=== PATIENT | male | born 1935 | race Caucasian/White ===

== ENCOUNTER 2016-11-06 16:21 | Emergency (ER) | payer OTHER ==
[~2016-11-06] VITALS: Ht 182.9 cm; Wt 79.0 kg
[~2016-11-06 16:21] MED LIST: HYDR-3533 PO; METF500 PO
[2016-11-06 16:24] VITALS: BP 134/63; PULSE 68; RESP 16; TEMP 97.6; O2SAT 97
[2016-11-06] MEDS ORDERED: VERA120T7 PO (16:40)
[2016-11-06] MEDS ORDERED: FINA5TAB2 PO (16:40)
[2016-11-06] MEDS ORDERED: METF500T PO (16:40)
[2016-11-06] MEDS ORDERED: DIGO0.25 PO (16:40)
[2016-11-06] MEDS ORDERED: SIMV20TA PO (16:40)
[2016-11-06] MEDS ORDERED: GABA300C5 PO (16:40)
[2016-11-06] MEDS ORDERED: OMEP20TA PO (16:40)
[2016-11-06] MEDS ORDERED: LOSA25TA PO (16:40)
--- NOTE | 2016-11-06 16:56 | PD ---
HPI . Right elbow injury Chief Complaint: Injury Time Seen by Provider: 16:51 Travel History International Travel<30 days: No Contact w/Intl Traveler<30days: No Traveled to known affect area: No History of Present Illness HPI Patient presents with the chief complaint of a right elbow injury which occurred about 4 hours prior to presentation. He was moving a piece of furniture when he felt something pop in his right elbow. He states that it did not hurt initially. However, pain later started and was radiating down his arm. He states he gave his dog a bath the pain started radiating up his arm. He then decided that he should probably come and have it checked out. PFSH Past Medical History Cardiovascular Problems: Yes (takes a medication for tachycardia) High Cholesterol: Yes Diabetes: Yes Patient Takes Glucophage: Yes Diminished Hearing: No GERD: Yes Hypertension: Yes Influenza Vaccination: No ?: Not Past Surgical History Other Surgery: Yes (cervical and lumbar fusions, bilateral knee arthroscopy) Social History Alcohol Use: No Tobacco Use: Yes Substance Use: No Allergies-Medications (Allergen,Severity, Reaction): Coded Allergies: Tetanus Toxoid (Verified Allergy, Intermediate, swelling, 11/06/16) Cortisone (Verified Adverse Reaction, Intermediate, abscesses, 11/06/16) Reported Meds & Prescriptions Reported Meds & Active Scripts Active Reported Gabapentin 300 Mg Cap 1,000 Mg PO DAILY Losartan (Losartan Potassium) 25 Mg Tab 25 Mg PO DAILY Finasteride 5 Mg Tab 5 Mg PO DAILY Do not crush. Simvastatin 20 Mg Tab 20 Mg PO DAILY Digoxin 0.25 Mg Tab 0.25 Mg PO DAILY Verapamil SR (Verapamil HCl) 120 Mg Tab 120 Mg PO BID Omeprazole 20 Mg Tab 20 Mg PO DAILY Metformin (Metformin HCl) 500 Mg Tab 500 Mg PO BIDPC With meals Review of Systems Except as stated in HPI: all other systems reviewed are Neg Musculoskeletal: Positive: Myalgias, Arthralgias, No: Limited ROM Skin: Positive Other (no associated break in the skin.) Physical Exam Narrative GENERAL: This is an elderly man who appears somewhat unsteady on his feet. He ambulates in. SKIN: Warm and dry. The skin of the right elbow is intact. HEAD: Atraumatic. Normocephalic. EYES: Pupils equal and round. ENT: No nasal bleeding or discharge. Mucous membranes pink and moist. NECK: Supple. CARDIOVASCULAR: Regular rate. Intact distal pulses. RESPIRATORY: No accessory muscle use. MUSCULOSKELETAL: No obvious deformities. No edema. He is tender in the right elbow over the radial head and lateral epicondyle. Passive pronation and supination causes pain. He is able to flex and extend the elbow without pain. He is able to fully extend the elbow. NEUROLOGICAL: Awake and alert. No obvious cranial nerve deficits. Motor grossly within normal limits. Normal speech. PSYCHIATRIC: Appropriate mood and affect; insight and judgment normal. Data Data Last Documented VS Vital Signs Date Time Temp Pulse Resp B/P Pulse Ox O2 Delivery O2 Flow Rate FiO2 11/06/16 16:24 97.6 68 16 134/63 97 Orders Elbow, Complete (4 Vws) (11/06/16 16:51) Acetaminophen (Tylenol) (11/06/16 17:00) Ice/Cold Pack (11/06/16 16:51) Splint Or Brace Apply/Monitor (11/06/16 17:12) [facility] Medical Decision Making Medical Screen Exam Complete: Yes Emergency Medical Condition: Yes Differential Diagnosis Differential diagnosis of extremity trauma includes but is not limited to fracture, sprain or strain, dislocation, contusion Narrative Course Patient presents for evaluation and treatment of her right elbow injury. Last Impressions Elbow X-Ray 11/06/16 1651 Signed Impressions: Service Date/Time: Sunday, November 06, 2016 16:56 - CONCLUSION: Normal examination for a patient of this age. Jaciel Thompson MD The x-ray was independently viewed by me. Diagnosis Primary Impression: Strain of right elbow Qualified Code: S56.911A - Strain of right elbow, initial encounter Patient Instructions: Elbow Sprain (ED), General Instructions Additional Instructions: Sling as needed for comfort. Ice and Tylenol as needed for pain. Disposition: 01 DISCHARGE HOME Condition: Stable Tamia Christensen MD Nov 06, 2016 16:56
[2016-11-06] MEDS ORDERED: ACETAMINOPHEN 325 MG TAB PO ONE (17:00)
--- NOTE | 2016-11-06 17:29 | RADHPO ---
EXAM DATE/TIME: 11/06/2016 16:56 [facility] COMPARISON: No previous studies available for comparison. INDICATIONS : Right elbow pain. Patient states he was moving a dresser and felt a pop in his elbow today. MEDICAL HISTORY : None. SURGICAL HISTORY : None. ENCOUNTER: Initial ACUITY: 1 day PAIN SCORE: 10/10 LOCATION: Right elbow. FINDINGS: Multiple view examination of the right elbow demonstrates no soft tissue swelling, joint effusion, or fracture. The osseous structures are in normal alignment. Bony mineralization is normal. CONCLUSION: Normal examination for a patient of this age. Jaciel Thompson MD on November 06, 2016 at 17:27 Board Certified Radiologist. This report was verified electronically.
== END 2016-11-06 17:55 | disposition home or self-care (01) ==
LOC: PHEFT 16:21
DX: S56.911A Strain of unspecified muscles, fascia and tendons at forearm level, right arm, initial encounter (principal); I10 Essential (primary) hypertension; E78.00 Pure hypercholesterolemia, unspecified; E11.9 Type 2 diabetes mellitus without complications; Z72.0 Tobacco use; Z79.84 Long term (current) use of oral hypoglycemic drugs; Z86.79 Personal history of other diseases of the circulatory system; Z87.19 Personal history of other diseases of the digestive system; X50.0XXA Overexertion from strenuous movement or load, initial encounter; Y93.F1 Activity, caregiving, bathing
CPT/HCPCS: 73080; 99283

== ENCOUNTER 2017-09-29 18:56 | Emergency (ER) | payer OTHER ==
[~2017-09-29] VITALS: Ht 182.9 cm; Wt 77.0 kg
[~2017-09-29 18:56] MED LIST changes: +DIGO0.25 PO; +FINA5TAB2 PO; +GABA300C5 PO; -HYDR-3533 PO; +LOSA25TA PO; -METF500 PO; +METF500T PO; +OMEP20TA93 PO; +SIMV20TA PO; +VERA120T7 PO
[2017-09-29 19:06] VITALS: BP 140/68; PULSE 92; RESP 12; TEMP 97.9; O2SAT 99
[2017-09-29 19:20] VITALS: BP 140/68; PULSE 92; RESP 16; TEMP 97.9; O2SAT 99
--- NOTE | 2017-09-29 19:44 | PD ---
HPI Chief Complaint: Fall Time Seen by Provider: 19:32 Travel History International Travel<30 days: No Contact w/Intl Traveler<30days: No Traveled to known affect area: No History of Present Illness HPI Patient is an 82 year old male presents to the ER for evaluation of left elbow swelling after fall caused by tripping over his dog today. patient states landed first on his knees then on his left elbow. Denies head/neck/back/chest/ abdomen injury. Patient denies loss of consciousness. Has been many years since last tetanus but he is allergic. States only minimal pain, left elbow, context and associated s/s as above. PFSH Past Medical History Cardiovascular Problems: Yes (takes a medication for tachycardia) High Cholesterol: Yes Diabetes: Yes Patient Takes Glucophage: Yes Diminished Hearing: No GERD: Yes Hypertension: Yes Immunizations Current: Yes Tetanus Vaccination: > 5 Years Influenza Vaccination: No Past Surgical History Other Surgery: Yes (cervical and lumbar fusions, bilateral knee arthroscopy) Social History Alcohol Use: No Tobacco Use: Yes Substance Use: No Allergies-Medications (Allergen,Severity, Reaction): Coded Allergies: tetanus toxoid, adsorbed (Unverified Allergy, Intermediate, swelling, ) cortisone (Unverified Adverse Reaction, Intermediate, abscesses, 09/29/17) Reported Meds & Prescriptions Reported Meds & Active Scripts Active Reported Gabapentin 300 Mg Cap 1,000 Mg PO DAILY Losartan (Losartan Potassium) 25 Mg Tab 25 Mg PO DAILY Finasteride 5 Mg Tab 5 Mg PO DAILY Do not crush. Simvastatin 20 Mg Tab 20 Mg PO DAILY Digoxin 0.25 Mg Tab 0.25 Mg PO DAILY Verapamil SR (Verapamil HCl) 120 Mg Tab 120 Mg PO BID Omeprazole 20 Mg Tab 20 Mg PO DAILY Metformin (Metformin HCl) 500 Mg Tab 500 Mg PO BIDPC With meals Review of Systems Except as stated in HPI: all other systems reviewed are Neg Physical Exam Narrative GENERAL: WD/WN in nad. SKIN: Warm and dry. small skin avulsion over lateral aspect of olecranon on left. HEAD: Normocephalic/atraumatic EYES: No scleral icterus. No injection or drainage. NECK: Supple, trachea midline. No JVD or lymphadenopathy. CARDIOVASCULAR: Regular rate and rhythm without murmurs, gallops, or rubs. RESPIRATORY: Breath sounds equal bilaterally. No accessory muscle use. GASTROINTESTINAL: Abdomen soft, non-tender, nondistended. MUSCULOSKELETAL: No cyanosis, there is a fair sized hematoma over the left forearm over the proximal half of the radius. Probably measures 10x5cm. Soft. There is overlying bruising and 2cm skin avulsion over the proximal portion of this. Bony elbow is nontender. Full NT ROM of bilateral upper extremities at all joints. Small abrasions to bilateral lower extremities over the patallae. No bony tenderness. Minimal anterior swelling but no joint effusion. Full NT ROM of all joints in bilateral lower extremities. No midline c/t/l/s spine tenderness, pelvis stable. BACK: Nontender without obvious deformity. No CVA tenderness. Data Data Last Documented VS Vital Signs Date Time Temp Pulse Resp B/P (MAP) Pulse Ox O2 Delivery O2 Flow Rate FiO2 09/29/17 21:32 85 18 144/75 (98) 98 Room Air 09/29/17 19:20 97.9 Orders Orders Elbow, Complete (4 Vws) (09/29/17 ) Knee, Complete (4vws) (09/29/17 ) Knee, Complete (4vws) (09/29/17 ) Shalom Bandage (09/29/17 21:07) Ed Discharge Order (09/29/17 21:07) MDM Medical Decision Making Medical Screen Exam Complete: Yes Emergency Medical Condition: Yes Differential Diagnosis Hematoma, fracture, contusion, avulsion. Narrative Course Roomed in the ER. offered pain medication and he declined. xrays negative for bony injury. No indication for repair of avulsion. Compartments are soft and no indication for compartment syndrome. Discussed symptomatic management and return to ED criteria. Diagnosis Primary Impression: Contusion of left forearm Qualified Codes: S50.12XA - Contusion of left forearm, initial encounter Additional Impression: Traumatic hematoma of left forearm Patient Instructions: Fall Prevention (DC), General Instructions, Hematoma (ED) , RICE Therapy (GEN) Disposition: 01 DISCHARGE HOME Condition: Stable Zach Jimenez MD Sep 29, 2017 19:44
--- NOTE | 2017-09-29 20:39 | RADRPT ---
EXAM DATE/TIME: 09/29/2017 19:51 [facility] COMPARISON: No previous studies available for comparison. INDICATIONS : Patient fell twice today. Pain on anterior surface of both knees and lateral side of elbow. MEDICAL HISTORY : None. SURGICAL HISTORY : None. ENCOUNTER: Initial ACUITY: 1 day PAIN SCORE: 4/10 LOCATION: Left Elbow FINDINGS: Decreased bone density. No definite fracture or dislocation. Well corticated ossicles posterior to th e olecranon are noted. CONCLUSION: No acute disease. Clark Patterson MD on September 29, 2017 at 20:36 Board Certified Radiologist. This report was verified electronically.
--- NOTE | 2017-09-29 20:39 | RADRPT ---
EXAM DATE/TIME: 09/29/2017 19:51 [facility] COMPARISON: No previous studies available for comparison. INDICATIONS : Patient fell twice today. Pain on anterior surface of both knees and lateral side of elbow. MEDICAL HISTORY : None. SURGICAL HISTORY : None. ENCOUNTER: Initial ACUITY: 1 day PAIN SCORE: 1/10 LOCATION: Right Knee FINDINGS: The bone density is decreased. [id number] osteoarthritis of the knee is noted. No fracture. No effusion. CONCLUSION: No acute disease. Clark Patterson MD on September 29, 2017 at 20:37 Board Certified Radiologist. This report was verified electronically.
--- NOTE | 2017-09-29 20:40 | RADRPT ---
EXAM DATE/TIME: 09/29/2017 19:51 [facility] COMPARISON: KNEE LEFT COMPLETE (4VWS), February 12, 2015, 6:34. INDICATIONS : Patient fell twice today. Pain on anterior surface of both knees and lateral side of elbow. MEDICAL HISTORY : None. SURGICAL HISTORY : None. ENCOUNTER: Initial ACUITY: 1 day PAIN SCORE: 2/10 LOCATION: Left Knee FINDINGS: Mild to moderate osteoarthritis is noted and unchanged. Bone density is decreased. No effusion, fract ure or dislocation. Mild infrapatellar soft tissue swelling. CONCLUSION: Mild soft tissue swelling. Osteoarthritis. Clark Patterson MD on September 29, 2017 at 20:37 Board Certified Radiologist. This report was verified electronically.
[2017-09-29 21:32] VITALS: BP 144/75; PULSE 85; RESP 18; O2SAT 98
== END 2017-09-29 21:34 | disposition home or self-care (01) ==
LOC: PHED 18:56
DX: S50.12XA Contusion of left forearm, initial encounter (principal); S80.812A Abrasion, left lower leg, initial encounter; S80.811A Abrasion, right lower leg, initial encounter; M17.12 Unilateral primary osteoarthritis, left knee; E11.9 Type 2 diabetes mellitus without complications; K21.9 Gastro-esophageal reflux disease without esophagitis; I10 Essential (primary) hypertension; W01.0XXA Fall on same level from slipping, tripping and stumbling without subsequent striking against object, initial encounter; Z72.0 Tobacco use
CPT/HCPCS: 73080; 73564; 99284

== ENCOUNTER 2017-11-16 10:07 | Observation (INO) | payer OTHER ==
[~2017-11-16] VITALS: Ht 182.9 cm; Wt 71.0 kg
[2017-11-16] MEDS ORDERED: BUPIVACAINE/EPINEPHRINE 0.25% 50 ML VIAL ONE (10:58)
[2017-11-16] MEDS ORDERED: THROMBIN (TOPICAL) 5,000 UNIT VIAL ONE (10:58)
[2017-11-16] MEDS ORDERED: GELATIN 12 MM/7 MM FOAM ONE (10:58)
[2017-11-16] MEDS ORDERED: CHLORHEXIDINE GLUCONATE 2 % 1 PACK (2 CLOTHS) TOPICAL PRN (11:00)
[2017-11-16] MEDS ORDERED: ceFAZolin 1,000 MG/NS 100 ML IV SCH ×2 (11:00)
[2017-11-16] MEDS ORDERED: POVIDONE IODINE 5% (ANTISEPSIS KIT) 4 APPLICATIONS EACH NARE PRN (11:00)
[2017-11-16] MEDS ORDERED: SODIUM CHLORID 0.9% 500 ML IV PRN (11:00)
[2017-11-16] MEDS ORDERED: ACETAMINOPHEN 1000 MG/100 ML 100 ML IV SCH (11:00)
[2017-11-16] MEDS ORDERED: VANCOMYCIN 1 GM/200 ML PREMIX ON-CALL IV SCH (11:00)
[2017-11-16] MEDS ORDERED: LACTATED RINGER'S 1000 ML IV PRN (11:00)
[2017-11-16] MEDS ORDERED: METOPROLOL TARTRATE 25 MG TAB PO PRN (11:00)
[2017-11-16 11:11] LABS: AUTOMATED NEUTROPHIL # 4.6 TH/MM3 (1.8-7.7); BASOPHIL % 0.6 % (0.0-2.0); EOSINOPHIL # 0.1 TH/MM3 (0-0.4); EOSINOPHIL % 1.9 % (0.0-4.0); HEMATOCRIT 38.3 % (39.0-51.0); HEMOGLOBIN 13.2 GM/DL (13.0-17.0); LYMPH % 16.4 % (9.0-44.0); LYMPHOCYTE # 1.1 TH/MM3 (1.0-4.8); MEAN CORPUSCULAR HEMOGLOBIN 32.7 PG (27.0-34.0); MEAN CORPUSCULAR HGB CONC 34.5 % (32.0-36.0); MEAN PLATELET VOLUME 8.3 FL (7.0-11.0); MONO % 11.3 % (0.0-8.0); MONOCYTE # 0.7 TH/MM3 (0-0.9); NEUT % 69.8 % (16.0-70.0); PLATELET COUNT 256 TH/MM3 (150-450); RED BLOOD COUNT 4.03 MIL/MM3 (4.50-5.90); RED CELL DISTRIBUTION WIDTH 13.6 % (11.6-17.2); WHITE BLOOD COUNT 6.6 TH/MM3 (4.0-11.0)
[2017-11-16] MEDS ORDERED: VERA120T3 PO (11:12)
[2017-11-16] MEDS ORDERED: ATOR20TA15 PO (11:12)
[2017-11-16] MEDS ORDERED: SODIUM CHLOR 0.9% 250 ML INJ 250 ML ONE (11:15)
[2017-11-16] MEDS ORDERED: VANCOMYCIN HCL 1000 MG VIAL ONE (11:15)
[2017-11-16 11:41] LABS: BICARBONATE 25.2 MEQ/L (21.0-32.0); CALCIUM 8.9 MG/DL (8.5-10.1); CREATININE 0.88 MG/DL (0.60-1.30)
[2017-11-16] MEDS ORDERED: LIDOCAINE HCL 1% PF 5 ML SYRINGE OTHER ONE (12:00)
[2017-11-16] MEDS ORDERED: ePHEDrine/NS 25 MG/5 ML SYRINGE IV ONE (12:00)
[2017-11-16] MEDS ORDERED: ONDANSETRON HCL 4 MG/2 ML VIAL IV ONE (12:00)
[2017-11-16] MEDS ORDERED: PHENYLEPH/NS 1000 MCG/10 ML SYR IV ONE (12:00)
[2017-11-16] MEDS ORDERED: SUCCINYLCHOLINE CHLORIDE 100 MG/5 ML SYRINGE IV PUSH ONE (12:00)
[2017-11-16] MEDS ORDERED: PROPOFOL 200 MG/20 ML AMP IV ONE (12:00)
--- NOTE | 2017-11-16 13:35 | EKG ---
Date Performed: 11/16/2017 Time Performed: 11:00:51 PTAGE: 82 years EKG: ECTOPIC ATRIAL BRADYCARDIA MODERATE T-WAVE ABNORMALITY, CONSIDER LATERAL ISCHEMIA ABNORMAL ECG NO PREVIOUS TRACING DOCTOR: Pablo Ardon Interpretating Date/Time 11/16/2017 13:33:22
--- NOTE | 2017-11-16 13:55 | HHI.PR ---
cc: Bonifacio Gannon MD Immediate Post Op Note Procedure Date: Nov 16, 2017 Pre Op Diagnosis: Symptomatic multinodular goiter Post Op Diagnosis: Same Surgeon: Bonifacio Gannon Sorter Packer(s): Yuri Albright MD Procedure: Total thyroidectomy with autotransplantation RLL parathyroid gland Findings: Extremely large goiter Complications: None Specimen(s) removed: thyroid gland to pathology Estimated blood loss: 400 ml Anesthesia: General Drains: None IVF (1700 ml) Patient to: PACU Patient Condition: Good Date/Time of Procedure: SEE SURGICAL CARE RECORD Bonifacio Gannon MD Nov 16, 2017 13:55
[2017-11-16] MEDS ORDERED: MAGNESIUM HYDROXIDE SUSP 30 ML CUP PO PRN (14:00)
[2017-11-16] MEDS ORDERED: Post-op Orders (for Pharmacy) XX ONE (14:00)
[2017-11-16] MEDS ORDERED: NORC5TAB PO (14:00)
[2017-11-16] MEDS ORDERED: ONDANSETRON HCL 4 MG/2 ML VIAL IV PUSH PRN (14:00)
[2017-11-16] MEDS ORDERED: NALOXONE HCL 0.4 MG/ML AMP IV PUSH PRN (14:00)
[2017-11-16] MEDS ORDERED: ACETAMINOPHEN/HYDROcodone 325 MG/5 MG TAB PO PRN (14:00)
[2017-11-16] MEDS ORDERED: DOCUSATE SODIUM 50 MG/SENNA 8.6 MG TAB PO PRN (14:00)
[2017-11-16] MEDS ORDERED: HYDROmorphone HCL PF 2 MG/ML VIAL IV PUSH PRN (14:15)
[2017-11-16] MEDS ORDERED: *morphine SULFATE 4 MG/ML PERIprocedure ONLY ONE (14:31)
[2017-11-16] MEDS: SODIUM CHLOR 0.9% 1000 ML INJ 1,000 ML IV SCH (14:41)
[2017-11-16 16:00] VITALS: BP 139/65; PULSE 59; RESP 17; TEMP 95.3; O2SAT 98
--- NOTE | 2017-11-16 16:04 | MP ---
cc: HAJA GANNON M.D., YU H. M.D. VERA, ARNOLD M.D. SCOTT, JAMES A. M.D. DATE OF SURGERY: 11/16/2017 PROCEDURE Total thyroidectomy with autotransplantation right lower lobe parathyroid into sternocleidomastoid muscle. PREOPERATIVE DIAGNOSIS Symptomatic large multinodular goiter. POSTOPERATIVE DIAGNOSIS Symptomatic large multinodular goiter. ANESTHESIA General endotracheal SURGEON Sonal Gannon MD. AV SPECIALIST: Yuri Albright MD. ESTIMATED BLOOD LOSS: 400 mL FLUIDS: 1700 mL Crystalloid. COMPLICATIONS: None. DRAINS: None. SPECIMEN: Thyroid to pathology. PROCEDURE IN DETAIL The patient was taken to the operating room and placed on the operating table in the supine position. After an adequate level of general endotracheal anesthesia was achieved the neck was prepped and draped sterilely and with a roll placed behind the shoulder blades with the neck in slightly extended position. Time-out was taken confirming the correct patient, site, and procedure to be performed. Transverse incision was made in a skin fold. Dissection was carried down through the platysma with electrocautery. The strap muscles were retracted laterally and the patient was noted to have a fairly large goiter extending across the anterior surface of the trachea. This was mobilized up first and was brought out of its capsule fairly easily. When this was completed this was excised from the actual thyroid gland on the anterior surface utilizing the harmonic scalpel and passed off the table. This allowed for a substantial increase in the amount of space to perform the remainder of the procedure. Attention was then turned to the left lobe of the thyroid gland and this was mobilized medially. The superior thyroid vessels were divided directly on the gland. The left recurrent laryngeal nerve was identified with the neuro probe and was preserved. Left lower and upper parathyroid glands were seen and these were preserved and appeared to be viable. The inferior vessels were divided directly on the gland with the harmonic scalpel. The gland was then excised off of the trachea with the harmonic scalpel. The blood vessels superiorly and medially adjacent to the lingular lobe were clamped and tied to allow for complete excision of the gland. Attention was then turned to the right side. The patient was noted to have relatively large vessels in the middle portion of the gland and these were divided with the harmonic scalpel. The inferior vessels were also divided and the gland then more easily rotated medially. The superior vessels were divided with the harmonic scalpel as they had been on the left. In rotating the gland even further medially the right recurrent laryngeal nerve was easily seen and care was taken to avoid thermal injury. The vessels were sealed with the harmonic scalpel directly on the glan itself and the gland excised off of the trachea. The entire intact gland that remained was passed off the table. The wound was irrigated on both sides and additional bleeding cleaned up with electrocautery. When this was completed, the wound was examined and Surgicel powder was placed on both sides. With hemostasis assured, the strap muscles were closed in the midline with interrupted 3-0 Vicryl suture. The platysma was closed with interrupted 3-0 Vicryl suture and the skin closed with 5-0 Prolene in a running subcuticular fashion. The wound was dressed with Steri-Strips, the patient was extubated and the cords were visualized and seen to be mobile. The patient was taken back to the recovery room in stable condition. Sponge, needle and instrument counts were reported be correct. MD PRATIBHA Palumbo/KOREY /2:09 PM /3:08 PM MTDGini
[2017-11-16] MEDS: metFORMIN HCL 500 MG TAB PO SCH (16:54)
[2017-11-16] MEDS: ACETAMINOPHEN/HYDROcodone 325 MG/5 MG TAB PO PRN ×2 (16:58→21:11)
[2017-11-16 18:24] VITALS: O2SAT 98
[2017-11-16 20:00] VITALS: BP 125/60; PULSE 74; RESP 17; TEMP 95.2; O2SAT 98
[2017-11-16] MEDS ORDERED: ATORVASTATIN 20 MG TAB PO SCH (21:00)
[2017-11-16] MEDS: VERAPAMIL HCL 120 MG SUSTAINED RELEASE TAB PO SCH (21:05)
[2017-11-17] VITALS (7 sets, daily range): BP systolic 102–124; BP diastolic 49–60; PULSE 62–74; RESP 17–20; TEMP 95.4–98.1; O2SAT 97–99
[2017-11-17] MEDS: SODIUM CHLOR 0.9% 1000 ML INJ 1,000 ML IV SCH (00:30)
[2017-11-17] MEDS: ACETAMINOPHEN/HYDROcodone 325 MG/5 MG TAB PO PRN ×3 (05:32→15:10)
[2017-11-17] MEDS: metFORMIN HCL 500 MG TAB PO SCH (08:51)
[2017-11-17] MEDS: VERAPAMIL HCL 120 MG SUSTAINED RELEASE TAB PO SCH (08:51)
[2017-11-17] MEDS ORDERED: FINASTERIDE 5 MG TAB PO SCH (09:00)
[2017-11-17] MEDS ORDERED: GABAPENTIN 400 MG CAP PO SCH (09:00)
[2017-11-17] MEDS ORDERED: DIGOXIN 0.25 MG TAB PO SCH (09:00)
[2017-11-17] MEDS ORDERED: PANTOPRAZOLE SOD 20 MG DELAYED RELEASE TAB PO SCH (09:00)
[2017-11-17] MEDS ORDERED: VERAPAMIL HCL 120 MG TAB PO SCH (09:00)
[2017-11-17] MEDS ORDERED: GABAPENTIN 300 MG CAP PO SCH ×2 (09:00)
[2017-11-17] MEDS ORDERED: LOSARTAN 25 MG TAB PO SCH (09:00)
--- NOTE | 2017-11-17 14:14 | HHI.PR ---
cc: Bonifacio Gannon MD Subjective Subjective Notes Resting in bed at bedside Had tolerated soft diet this morning; no shortness of breath Objective Vitals/I&O Vital Signs Date Time Temp Pulse Resp B/P (MAP) Pulse Ox O2 Delivery O2 Flow Rate FiO2 11/17/17 12:00 96.9 64 20 106/50 (68) 98 11/17/17 09:10 21 11/16/17 18:24 Nasal Cannula Labs Laboratory Tests Test 11/17/17 06:20 Hemoglobin 11.3 Cardiovascular: Regular Lungs: Clear Abdomen: Non-distended, Non-tender Extremities: No edema Narrative Exam neck: dressing in place; mild swelling; no pain A/P Assessment and Plan 82 year old male POD1 total thyroidectomy -Continue to monitor Hemoglobin; recheck today at 1400 -Regular soft diet -DC IVF -Hold BP medications -OOB and mobilize; walker -Discussed with patient's Attending Note - Dr. Gannon Minimal neck swelling and ecchymosis Normal voice Ca++ normal; no symptoms of hypocalcemia The exam, history, and the medical decision-making described in the above note were completed with the assistance of the mid-level provider. I reviewed and agree with the findings presented. I attest that I had a [id number] encounter with the patient on the same day, and personally performed and documented my assessment and findings in the medical record. Telma Carranza/Polishing Machine Tender LUCY Nov 17, 2017 14:14 Bonifacio Gannon MD Nov 22, 2017 11:37
[2017-11-17 15:19] LABS: AUTOMATED NEUTROPHIL # 7.7 TH/MM3 (1.8-7.7); BASOPHIL % 0.2 % (0.0-2.0); EOSINOPHIL # 0.1 TH/MM3 (0-0.4); EOSINOPHIL % 0.7 % (0.0-4.0); HEMATOCRIT 32.4 % (39.0-51.0); HEMOGLOBIN 11.3 GM/DL (13.0-17.0); LYMPH % 5.2 % (9.0-44.0); LYMPHOCYTE # 0.5 TH/MM3 (1.0-4.8); MEAN CELL VOLUME 93.9 FL (80.0-100.0); MEAN CORPUSCULAR HEMOGLOBIN 32.9 PG (27.0-34.0); MEAN PLATELET VOLUME 7.8 FL (7.0-11.0); MONO % 7.5 % (0.0-8.0); MONOCYTE # 0.7 TH/MM3 (0-0.9); NEUT % 86.4 % (16.0-70.0); PLATELET COUNT 217 TH/MM3 (150-450); RED BLOOD COUNT 3.44 MIL/MM3 (4.50-5.90); RED CELL DISTRIBUTION WIDTH 13.5 % (11.6-17.2); WHITE BLOOD COUNT 8.9 TH/MM3 (4.0-11.0)
--- NOTE | 2017-11-17 15:40 | HHI.DS ---
Discharge Summary Admission Date Nov 16, 2017 at 13:58 Discharge Date: Nov 17, 2017 Admitting Diagnosis Brief History 82 year old male POD1 total thyroidectomy. CBC/BMP: 11/17/17 1455 11/16/17 1050 Significant Findings Laboratory Tests Test 11/16/17 10:50 11/17/17 06:20 11/17/17 14:55 Red Blood Count 4.03 MIL/MM3 (4.50-5.90) 3.44 MIL/MM3 (4.50-5.90) Hematocrit 38.3 % (39.0-51.0) 32.4 % (39.0-51.0) Monocytes (%) (Auto) 11.3 % (0.0-8.0) Blood Urea Nitrogen 19 MG/DL (7-18) Estimat Glomerular Filtration Rate 83 ML/MIN (>89) Hemoglobin 11.3 GM/DL (13.0-17.0) 11.3 GM/DL (13.0-17.0) Neutrophils (%) (Auto) 86.4 % (16.0-70.0) Lymphocytes (%) (Auto) 5.2 % (9.0-44.0) Lymphocytes # (Auto) 0.5 TH/MM3 (1.0-4.8) PE at Discharge Alert and awake Cardio: RRR Resp:CTAB Abd: soft non tender neck: dressing in place; mild swelling; no pain Hospital Course This is an 82 year old male POD1 total thyroidectomy. The patient was able to tolerate a regular soft diet. The patient's pain was controlled using oral pain medications. The patient's follow up CBC was stable. He will follow up in the office on November 24. Pt Condition on Discharge: Good Discharge Disposition: Discharge Home Discharge Instructions DIET: Follow Instructions for: As Tolerated, No Restrictions, Soft Diet Activities you can perform: See Additionl Instruction Other Activity Instructions: Okay to shower; pat incisions dry HEAD OF BED ELEVATED AT 45 DEGREES AT ALL TIMES! Telma Carranza/First Michael AYALA Nov 17, 2017 15:40
== END 2017-11-17 17:44 | disposition home or self-care (01) ==
LOC: HSDC 10:07 → HSDI 13:58 → N07B 15:21
PROVIDERS: ADMIT Surgery Trauma Surgery; ATTEND Surgery Trauma Surgery
DX: C73 Malignant neoplasm of thyroid gland (principal); R00.1 Bradycardia, unspecified; R94.31 Abnormal electrocardiogram [ECG] [EKG]; I10 Essential (primary) hypertension; E78.2 Mixed hyperlipidemia; E11.9 Type 2 diabetes mellitus without complications; K21.9 Gastro-esophageal reflux disease without esophagitis
CPT/HCPCS: 00320; 60240; 60512; 80048; 85018; 85025; 88307; 93005; 94150; 96360; 96361; G0378; J0131; J0330; J0690; J2270; J2370; J2405; J3010; J3370; J7030; J7050; J7120